=== PATIENT | male | born 1940 | race Caucasian/White ===

== ENCOUNTER → 2017-01-20 | Outpatient (CLI) | payer OTHER ==
[2014-08-30 13:58] VITALS: BP 139/66
--- NOTE | 2017-01-20 16:07 | MRI ---
HISTORY: Ataxic gait Study: MRI Brain without contrast Comparison: 01/03/2012 Technique: Multiplanar multi-sequence MRI of the brain was obtained utilizing standard departmental protocol. Sagittal and axial T1 weighted images were obtained. Axial T2 and flair weighted images were performed as well. Axial diffusion weighted and ADC trace mapping was performed. Findings: There is chronic generalized cerebral volume loss and mild patchy periventricular white matter T2 an d FLAIR hyperintense foci that are nonspecific in nature but may reflect sequela of microvascular is chemic changes. There is a small focus of increased signal on diffusion-weighted images in the right parietal lobe (image 29) corresponding to T2 and FLAIR weighted hyperintense signal and no definite dropout on the ADC map. Findings are favored to represent a subacute to chronic ischemic changes. N o extra-axial fluid collections are observed. The ventricular system appears symmetric and nondilat ed. The cerebellopontine angles are normal in appearance without brainstem mass or evidence for acou stic neuroma. The flow voids on T2 weighted imaging appear unremarkable. The midline structures appear unremarkab le. The soft tissues are unremarkable. The visualized paranasal sinuses and mastoid air cells are c lear. IMPRESSION: 1. Chronic cerebral atrophy and nonspecific mild white matter disease as discussed above likely rep resenting small vessel ischemic changes. Reported By:
== END ==
LOC: RAD 14:16
PROVIDERS: ATTEND Internal Medicine
DX: R26.0 Ataxic gait (principal); G50.1 Atypical facial pain; R42 Dizziness and giddiness
CPT/HCPCS: 70551

== ENCOUNTER 2022-05-25 08:50 | Observation (INO) ==
[2022-05-25 14:55] LABS: HEMOGLOBIN 16.9 g/dL (13.5-18.0); LYMPHOCYTES # (AUTO) 1.5 X10^3/uL (1.3-2.9); MONOCYTES # (AUTO) 1.2 x10^3/uL (0.3-0.8); RED CELL DISTRIBUTION WIDTH 13.2 % (11.6-16.5)
[2022-05-25 15:00] LABS: BASOPHILS % (AUTO) 0.6 % (0.2-1.0); EOSINOPHILS # (AUTO) 0.1 x10^3/uL (0.0-0.2); EOSINOPHILS % (AUTO) 1.7 % (0.9-2.9); HEMATOCRIT 46.3 % (42.0-54.0); LYMPHOCYTES % (AUTO) 17.3 % (21.0-51.0); MEAN CORPUSCULAR HEMOGLOBIN 30.2 pg (27.0-34.0); MEAN CORPUSCULAR HGB CONC 36.5 g/dL (33.0-35.0); MEAN CORPUSCULAR VOLUME 82.7 fL (80.0-100.0); MONOCYTES % (AUTO) 13.9 % (0.0-13.0); NEUTROPHILS # (AUTO) 5.6 x10^3/uL (2.2-4.8); NEUTROPHILS % (AUTO) 66.5 % (42.0-75.0); WHITE BLOOD COUNT 8.4 X10^3/uL (3.6-10.0)
[2022-05-25 15:02] LABS: ALANINE AMINOTRANSFERASE 26 Units/L (12-78); ALBUMIN 4.1 g/dL (3.4-5.0); ALKALINE PHOSPHATASE 100 Units/L (46-116); ASPARTATE AMINO TRANSFERASE 19 Units/L (15-37); BLOOD UREA NITROGEN 18 mg/dL (7-18); CALCIUM 8.8 mg/dL (8.5-10.1); CARBON DIOXIDE 31.3 mmol/L (21-32); CHLORIDE 81 mmol/L (98-107); COR NA(FOR HYPERGLY) 122 mmol/L (136-145); CREATINE KINASE 70 Units/L (39-308); CREATININE 1.63 mg/dL (0.70-1.30); MAGNESIUM 2.1 mg/dL (1.7-2.9); TOTAL PROTEIN 7.1 g/dL (6.4-8.2); eGFR NON BLACK RACES 43 (>60)
[2022-05-25 15:04] LABS: SODIUM 119 mmol/L (136-145)
[2022-05-25] MEDS ORDERED: KLOR-CON PO PRN (15:14)
[2022-05-25] MEDS ORDERED: POTASSIUM CHL 60 MEQ/NS 0.45% 500 ML IV PRN (15:14)
[2022-05-25] MEDS ORDERED: POTASSIUM CHL 40 MEQ/NS 0.45% 500 ML IV PRN (15:14)
[2022-05-25] MEDS ORDERED: MICRO K EXTEN CAP 10 MEQ PO PRN (15:14)
[2022-05-25] MEDS ORDERED: POTASSIUM CHLORIDE LIQ 20 MEQ UDC PO PRN (15:14)
[2022-05-25] MEDS ORDERED: K-RIDER 10 MEQ/NS 100 ML 10 MEQ/100 ML BAG IV PRN (15:14)
[2022-05-25] MEDS ORDERED: K-DUR TAB 20 MEQ PO PRN (15:14)
--- NOTE | 2022-05-25 15:37 | RAD ---
HISTORYHYPONATREMIA, N/VSTUDYCHEST, 1 VIEWCOMPARISONNoneFINDINGSThe lungs are clear. No pneumothorax or significant effusion.Heart size is normal.Degenerative changes are present in the spine. []IMPRESSION1. No significant abnormalityElectronically signed by: Rey Dominguez (May 25, 2022 15:36:39)
[2022-05-25] MEDS: NS 1,000 ML IV 1,000 ML IV SCH (15:52)
[2022-05-26 00:24] LABS: APPEARANCE,URINE CLEAR (CLEAR); BILIRUBIN,URINE NEGATIVE (NEGATIVE); BLOOD/HEMOGLOBIN,URINE NEGATIVE (NEGATIVE); COLOR,URINE STRAW (YELLOW); GLUCOSE, URINE NEGATIVE (NEGATIVE); KETONES,URINE NEGATIVE (NEGATIVE); LEUKOCYTE ESTERASE ,URINE NEGATIVE (NEGATIVE); NITRITES,URINE NEGATIVE (NEGATIVE); PROTEIN,URINE NEGATIVE (NEGATIVE); UROBILINOGEN,URINE NORMAL (NORMAL)
[2022-05-26 06:07] LABS: BLOOD UREA NITROGEN 17 mg/dL (7-18); CALCIUM 9.1 mg/dL (8.5-10.1); CARBON DIOXIDE 29.3 mmol/L (21-32); CHLORIDE 90 mmol/L (98-107); COR NA(FOR HYPERGLY) 128 mmol/L (136-145); CREATININE 1.41 mg/dL (0.70-1.30); MAGNESIUM 2.2 mg/dL (1.7-2.9); SODIUM 127 mmol/L (136-145); eGFR NON BLACK RACES 51 (>60)
[2022-05-26] MEDS: NS 1,000 ML IV 1,000 ML IV SCH ×2 (06:15→21:26)
--- NOTE | 2022-05-26 07:36 | DR.H&P ---
H&P History & Physical for Day of: H&P Date: 05/25/22 Chief Complaint Chief Complaint: Weakness Allergies Allergies Allergy/AdvReac Type Severity Reaction Status Date / Time No Known Drug Allergies Allergy Verified 10/21/19 17:30 History of Present Illness History of Present Illness: This is a 81-year-old white male who is a patient of mine. He presented to the office on the day before complaining of weakness. I did a CBC and CMP and when the results came back it showed that his sodium was 114. Because of this I elected to go ahead and direct admitting and start him on normal saline at 75 cc an hour. I will also repeat his labs check set of cardiac enzymes and EKG and chest x-ray as well. He also is having some nausea and vomiting since last week. The regional symptoms began then after he started taking Lasix he reports. Suspect the daily Lasix he has been taking his causes hyponatremia. Past Medical History Past Medical History: Diabetes and Hypertension Past Surgical History Surgical History: No History Family History Family Medical History: Diabetes Mellitus and Hypertension Social History Does patient currently use any type of tobacco product: No Have you used tobacco products in the last 12 months: No Type of Tobacco Use: None Does any household member use tobacco: No Alcohol Use: None Drug Use: None Medications Home Medications: No Known Drug Allergies Allergy (Verified 10/21/19 17:30) CONTINUE taking the following medications amlodipine 10 mg tablet 10 mg PO QDAY 05/25/22 [History] atorvastatin 40 mg tablet 40 mg PO QHS 05/25/22 [History] carbamazepine 200 mg tablet 200 mg PO BID 05/25/22 [History] glyburide 5 mg tablet 5 mg PO BID 05/25/22 [History] hydrocodone 5 mg-acetaminophen 325 mg tablet 1 tab PO Q6H PRN 05/25/22 [History] lisinopril 30 mg tablet 30 mg PO QDAY 05/25/22 [History] montelukast 10 mg tablet 10 mg PO QDAY 05/25/22 [History] ondansetron 8 mg disintegrating tablet 8 mg PO Q8H 05/25/22 [History] potassium chloride 10 mEq capsule,extended release 10 meq PO QDAY PRN 05/25/22 [History] Labs Result Diagrams: 05/25/22 13:55 05/26/22 05:14 Labs: Laboratory WBC 8.4 X10^3/uL (3.6-10.0) 05/25/22 13:55 RBC 5.60 X10^6/uL (4.7-6.0) 05/25/22 13:55 Hgb 16.9 g/dL (13.5-18.0) 05/25/22 13:55 Hct 46.3 % (42.0-54.0) 05/25/22 13:55 MCV 82.7 fL (80.0-100.0) 05/25/22 13:55 MCH 30.2 pg (27.0-34.0) 05/25/22 13:55 MCHC 36.5 g/dL (33.0-35.0) H 05/25/22 13:55 RDW 13.2 % (11.6-16.5) 05/25/22 13:55 Plt Count 207 X10^3/uL (150.0-450.0) 05/25/22 13:55 MPV 7.0 fL (7.4-11.0) L 05/25/22 13:55 Neut % (Auto) 66.5 % (42.0-75.0) 05/25/22 13:55 Lymph % (Auto) 17.3 % (21.0-51.0) L 05/25/22 13:55 [place] % (Auto) 13.9 % (0.0-13.0) H 05/25/22 13:55 Eos % (Auto) 1.7 % (0.9-2.9) 05/25/22 13:55 Baso % (Auto) 0.6 % (0.2-1.0) 05/25/22 13:55 Neut # (Auto) 5.6 x10^3/uL (2.2-4.8) H 05/25/22 13:55 Lymph # (Auto) 1.5 X10^3/uL (1.3-2.9) 05/25/22 13:55 [place] # (Auto) 1.2 x10^3/uL (0.3-0.8) H 05/25/22 13:55 Eos # (Auto) 0.1 x10^3/uL (0.0-0.2) 05/25/22 13:55 Baso # (Auto) 0.0 X10^3/uL (0.0-0.1) 05/25/22 13:55 Absolute Nucleated RBC 0.0 /100WBC 05/25/22 13:55 Sodium 127 mmol/L (136-145) L 05/26/22 05:14 Corrected Sodium 128 mmol/L (136-145) L 05/26/22 05:14 Potassium 4.3 mmol/L (3.5-5.1) 05/26/22 05:14 Chloride 90 mmol/L (98-107) L 05/26/22 05:14 Carbon Dioxide 29.3 mmol/L (21-32) 05/26/22 05:14 BUN 17 mg/dL (7-18) 05/26/22 05:14 Creatinine 1.41 mg/dL (0.70-1.30) H 05/26/22 05:14 Est GFR (MDRD) Af Amer > 60 (>60) 05/26/22 05:14 Est GFR (MDRD) Non-Af 51 (>60) L 05/26/22 05:14 Glucose 134 mg/dL (65-99) H 05/26/22 05:14 Calcium 9.1 mg/dL (8.5-10.1) 05/26/22 05:14 Corrected Calcium TNP 05/25/22 13:55 Magnesium 2.2 mg/dL (1.7-2.9) 05/26/22 05:14 Total Bilirubin 0.40 mg/dL (0.2-1.0) 05/25/22 13:55 AST 19 Units/L (15-37) 05/25/22 13:55 ALT 26 Units/L (12-78) 05/25/22 13:55 Alkaline Phosphatase 100 Units/L (46-116) 05/25/22 13:55 Creatine Kinase 70 Units/L (39-308) 05/25/22 13:55 Troponin I High Sens 5.3 ng/L (4.0-60.0) 05/25/22 13:55 B-Natriuretic Peptide 6.9 pg/mL (0-79) 05/25/22 13:55 Total Protein 7.1 g/dL (6.4-8.2) 05/25/22 13:55 Albumin 4.1 g/dL (3.4-5.0) 05/25/22 13:55 Globulin 3.0 g/dL (2.5-4.5) 05/25/22 13:55 Albumin/Globulin Ratio 1.4 Ratio (1.1-2.1) 05/25/22 13:55 Specimen Type Clean catch urine 05/25/22 11:55 Urine Color Straw (YELLOW) 05/25/22 11:55 Urine Appearance Clear (CLEAR) 05/25/22 11:55 Urine pH 7.0 (5.0 - 8.0) 05/25/22 11:55 Ur Specific [place] 1.010 (1.000-1.030) 05/25/22 11:55 Urine Protein Negative (NEGATIVE) 05/25/22 11:55 Urine Glucose (UA) Negative (NEGATIVE) 05/25/22 11:55 Urine Ketones Negative (NEGATIVE) 05/25/22 11:55 Urine Blood Negative (NEGATIVE) 05/25/22 11:55 Urine Nitrite Negative (NEGATIVE) 05/25/22 11:55 Urine Bilirubin Negative (NEGATIVE) 05/25/22 11:55 Urine Urobilinogen Normal (NORMAL) 05/25/22 11:55 Ur Leukocyte Esterase Negative (NEGATIVE) 05/25/22 11:55 SARS-CoV-2 (PCR) Negative (NEGATIVE) 05/25/22 13:09 Review of Systems Constitutional: Weakness Eyes: No Symptoms Reported ENT: No Symptoms Reported Respiratory: No Symptoms Reported Cardiovascular: No Symptoms Reported Gastrointestinal: Nausea and Vomiting; denies No Symptoms Reported, See HPI, Abdominal Pain, Constipation, Melena, Hematochezia or Other Genitourinary: No Symptoms Reported Musculoskeletal: Back Pain Skin: Bruising and Ecchymosis Neurological: No Symptoms Reported Physical Exam Vital Signs: Temperature 98.1 F Pulse Rate [Left Radial] 80 Respiratory Rate 20 Blood Pressure [Left Arm] 144/67 Blood Pressure [Right Arm] 183/74 O2 Sat by Pulse Oximetry 92 Oriented: Normal, Time, Person and Place Eyes: Normal Ear: Normal Nose: Normal Throat: Normal Respiratory: Clear Throughout Cardiovascular: Normal : Normal Auscultation: Bowel Sounds: Normal Palpation: Normal Tenderness: Normal Skin: Decreased Turgur and Bruising Psychiatric: Normal Mood Description: Calm Affect: Normal Speech Pattern: Clear and Appropriate Assessment/Plan (1) Hyponatremia: Status: Acute Plan: I will start the patient normal saline at 75 cc an hour. I will recheck a CBC and BMP in the morning. (2) Diabetes mellitus type 2 in nonobese: Status: Acute Plan: Resume his regular home diabetes meds. (3) Hypertension: Status: Acute Plan: Resume patient's regular hypertension tensive meds. (4) Chronic low back pain: Status: Acute Plan: Continue patient's hydrocodone for his chronic back pain. Review H&P Reviewed: Yes Patient was examined?: Yes
[2022-05-26] MEDS: LOVENOX INJ 40 MG SYR SC SCH (10:41)
[2022-05-26] MEDS ORDERED: NORCO 5/325 MG TAB PO PRN (11:05)
[2022-05-26] MEDS: NORVASC TAB 10 MG PO SCH (11:31)
[2022-05-26] MEDS: SINGULAIR TAB 10 MG PO SCH (11:32)
[2022-05-26] MEDS: NovoLIN R (or HumuLIN R) SUBCUT PRN ×3 (11:38→21:32)
[2022-05-26] MEDS ORDERED: ZESTRIL TAB 10 MG PO SCH (12:00)
--- NOTE | 2022-05-26 16:10 | PCM.PROG ---
Progress Note Progress Note for Day of Date of Exam: 05/26/22 Subjective Subjective: The patient is sitting up in bed this morning eating breakfast. He reports he is feeling much better and somewhat stronger than yesterday. His sodium was 19 yesterday coming to the hospital and this morning he has come up to 128. We will continue him on the normal saline at 75 mL an hour and plan on discharging home tomorrow as long as his sodium has continued to improve. I will restart his blood pressure medicines today for his hypertension no other changes. We will recheck another BMP in the morning. Past Medical Family Social History Allergies: Allergies No Known Drug Allergies Allergy (Verified 10/21/19 17:30) Review of Systems ROS: No change since H&P Vital Signs and I&O's Vital Signs: Temperature 98.0 F Pulse Rate [Left Radial] 70 Respiratory Rate 20 Blood Pressure [Left Arm] 171/72 Blood Pressure [Right Arm] 183/74 O2 Sat by Pulse Oximetry 94 Intake and Output: Intake & Output 05/24/22 05/25/22 05/26/22 05/27/22 11:59 11:59 11:59 11:59 Intake Total 1587 / 1587 1250 / 1250 Balance 1587 / 1587 1250 / 1250 Physical Exam Oriented: Normal, Time, Person and Place Eyes: Normal Ear: Normal Nose: Normal Throat: Normal Respiratory: Normal Cardiovascular: Normal : Normal Auscultation: Bowel Sounds: Normal Tenderness: Normal Skin: Decreased Turgur and Bruising Psychiatric: Normal Mood Description: Calm Affect: Normal Speech Pattern: Clear and Appropriate Laboratory and Diagnostics Result Diagrams: 05/25/22 13:55 05/26/22 05:14 Labs: Laboratory WBC 8.4 X10^3/uL (3.6-10.0) 05/25/22 13:55 RBC 5.60 X10^6/uL (4.7-6.0) 05/25/22 13:55 Hgb 16.9 g/dL (13.5-18.0) 05/25/22 13:55 Hct 46.3 % (42.0-54.0) 05/25/22 13:55 MCV 82.7 fL (80.0-100.0) 05/25/22 13:55 MCH 30.2 pg (27.0-34.0) 05/25/22 13:55 MCHC 36.5 g/dL (33.0-35.0) H 05/25/22 13:55 RDW 13.2 % (11.6-16.5) 05/25/22 13:55 Plt Count 207 X10^3/uL (150.0-450.0) 05/25/22 13:55 MPV 7.0 fL (7.4-11.0) L 05/25/22 13:55 Neut % (Auto) 66.5 % (42.0-75.0) 05/25/22 13:55 Lymph % (Auto) 17.3 % (21.0-51.0) L 05/25/22 13:55 [place] % (Auto) 13.9 % (0.0-13.0) H 05/25/22 13:55 Eos % (Auto) 1.7 % (0.9-2.9) 05/25/22 13:55 Baso % (Auto) 0.6 % (0.2-1.0) 05/25/22 13:55 Neut # (Auto) 5.6 x10^3/uL (2.2-4.8) H 05/25/22 13:55 Lymph # (Auto) 1.5 X10^3/uL (1.3-2.9) 05/25/22 13:55 [place] # (Auto) 1.2 x10^3/uL (0.3-0.8) H 05/25/22 13:55 Eos # (Auto) 0.1 x10^3/uL (0.0-0.2) 05/25/22 13:55 Baso # (Auto) 0.0 X10^3/uL (0.0-0.1) 05/25/22 13:55 Absolute Nucleated RBC 0.0 /100WBC 05/25/22 13:55 Sodium 127 mmol/L (136-145) L 05/26/22 05:14 Corrected Sodium 128 mmol/L (136-145) L 05/26/22 05:14 Potassium 4.3 mmol/L (3.5-5.1) 05/26/22 05:14 Chloride 90 mmol/L (98-107) L 05/26/22 05:14 Carbon Dioxide 29.3 mmol/L (21-32) 05/26/22 05:14 BUN 17 mg/dL (7-18) 05/26/22 05:14 Creatinine 1.41 mg/dL (0.70-1.30) H 05/26/22 05:14 Est GFR (MDRD) Af Amer > 60 (>60) 05/26/22 05:14 Est GFR (MDRD) Non-Af 51 (>60) L 05/26/22 05:14 Glucose 134 mg/dL (65-99) H 05/26/22 05:14 POC Glucose (mg/dL) 177 mg/dL (65-99) H 05/26/22 11:15 Calcium 9.1 mg/dL (8.5-10.1) 05/26/22 05:14 Corrected Calcium TNP 05/25/22 13:55 Magnesium 2.2 mg/dL (1.7-2.9) 05/26/22 05:14 Total Bilirubin 0.40 mg/dL (0.2-1.0) 05/25/22 13:55 AST 19 Units/L (15-37) 05/25/22 13:55 ALT 26 Units/L (12-78) 05/25/22 13:55 Alkaline Phosphatase 100 Units/L (46-116) 05/25/22 13:55 Creatine Kinase 80 Units/L (39-308) 05/26/22 14:50 Troponin I High Sens 5.3 ng/L (4.0-60.0) 05/26/22 14:50 B-Natriuretic Peptide 6.9 pg/mL (0-79) 05/25/22 13:55 Total Protein 7.1 g/dL (6.4-8.2) 05/25/22 13:55 Albumin 4.1 g/dL (3.4-5.0) 05/25/22 13:55 Globulin 3.0 g/dL (2.5-4.5) 05/25/22 13:55 Albumin/Globulin Ratio 1.4 Ratio (1.1-2.1) 05/25/22 13:55 Specimen Type Clean catch urine 05/25/22 11:55 Urine Color Straw (YELLOW) 05/25/22 11:55 Urine Appearance Clear (CLEAR) 05/25/22 11:55 Urine pH 7.0 (5.0 - 8.0) 05/25/22 11:55 Ur Specific [place] 1.010 (1.000-1.030) 05/25/22 11:55 Urine Protein Negative (NEGATIVE) 05/25/22 11:55 Urine Glucose (UA) Negative (NEGATIVE) 05/25/22 11:55 Urine Ketones Negative (NEGATIVE) 05/25/22 11:55 Urine Blood Negative (NEGATIVE) 05/25/22 11:55 Urine Nitrite Negative (NEGATIVE) 05/25/22 11:55 Urine Bilirubin Negative (NEGATIVE) 05/25/22 11:55 Urine Urobilinogen Normal (NORMAL) 05/25/22 11:55 Ur Leukocyte Esterase Negative (NEGATIVE) 05/25/22 11:55 SARS-CoV-2 (PCR) Negative (NEGATIVE) 05/25/22 13:09 Radiology Reviewed: Yes EKG Reviewed: Yes Plan (1) Hyponatremia: Status: Acute Narrative Support Text: Improving since admission Plan: I will start the patient normal saline at 75 cc an hour. I will recheck BMP in the morning. (2) Diabetes mellitus type 2 in nonobese: Status: Acute Plan: Resume his regular home diabetes meds. (3) Hypertension: Status: Acute Plan: Resume patient's regular hypertension tensive meds. (4) Chronic low back pain: Status: Acute Plan: Continue patient's hydrocodone for his chronic back pain.
[2022-05-26] MEDS: DIABETA PO SCH (17:23)
[2022-05-26] MEDS: TOPROL XL PO SCH (18:10)
[2022-05-26] MEDS ORDERED: SNACK - Diabetic Appropriate PO SCH ×2 (20:00)
[2022-05-26] MEDS ORDERED: LIPITOR TAB 40 MG PO SCH (21:00)
[2022-05-27 05:52] LABS: BASOPHILS # (AUTO) 0.1 X10^3/uL (0.0-0.1); EOSINOPHILS # (AUTO) 0.4 x10^3/uL (0.0-0.2); EOSINOPHILS % (AUTO) 3.6 % (0.9-2.9); HEMOGLOBIN 16.8 g/dL (13.5-18.0); LYMPHOCYTES # (AUTO) 2.2 X10^3/uL (1.3-2.9); LYMPHOCYTES % (AUTO) 20.6 % (21.0-51.0); MEAN CORPUSCULAR HEMOGLOBIN 30.2 pg (27.0-34.0); MEAN CORPUSCULAR HGB CONC 35.6 g/dL (33.0-35.0); MEAN CORPUSCULAR VOLUME 84.8 fL (80.0-100.0); MEAN PLATELET VOLUME 6.6 fL (7.4-11.0); MONOCYTES # (AUTO) 1.5 x10^3/uL (0.3-0.8); MONOCYTES % (AUTO) 13.4 % (0.0-13.0); NEUTROPHILS # (AUTO) 6.7 x10^3/uL (2.2-4.8); NEUTROPHILS % (AUTO) 61.4 % (42.0-75.0); RED BLOOD COUNT 5.55 X10^6/uL (4.7-6.0); RED CELL DISTRIBUTION WIDTH 13.4 % (11.6-16.5); WHITE BLOOD COUNT 10.8 X10^3/uL (3.6-10.0)
[2022-05-27 06:11] LABS: ALANINE AMINOTRANSFERASE 46 Units/L (12-78); ALBUMIN 3.7 g/dL (3.4-5.0); ALKALINE PHOSPHATASE 95 Units/L (46-116); ASPARTATE AMINO TRANSFERASE 29 Units/L (15-37); BLOOD UREA NITROGEN 17 mg/dL (7-18); CALCIUM 8.5 mg/dL (8.5-10.1); CARBON DIOXIDE 26.8 mmol/L (21-32); CHLORIDE 95 mmol/L (98-107); CREATININE 1.33 mg/dL (0.70-1.30); SODIUM 130 mmol/L (136-145); TOTAL PROTEIN 6.7 g/dL (6.4-8.2); eGFR NON BLACK RACES 55 (>60)
[2022-05-27] MEDS: NS 1,000 ML IV 1,000 ML IV SCH (06:12)
[2022-05-27] MEDS: DIABETA PO SCH (08:03)
[2022-05-27] MEDS: SINGULAIR TAB 10 MG PO SCH (08:40)
[2022-05-27] MEDS: TOPROL XL PO SCH (08:40)
[2022-05-27] MEDS: NORVASC TAB 10 MG PO SCH (08:40)
[2022-05-27] MEDS: LOVENOX INJ 40 MG SYR SC SCH (08:40)
[2022-05-27] MEDS ORDERED: ZESTRIL TAB 40 MG PO SCH (09:00)
--- NOTE | 2022-05-27 09:14 | PCM.DCPLAN ---
DISCHARGE SUMMARY Admission Date Date of Admission: 05/25/22 Discharge Date Discharge Date: 05/27/22 Admission Diagnoses (1) Hyponatremia: Status: Acute (2) Diabetes mellitus type 2 in nonobese: Status: Acute (3) Hypertension: Status: Acute (4) Chronic low back pain: Status: Acute Discharge Diagnoses Discharge Diagnosis: 1. Hyponatremia resolved 2. Diabetes mellitus type 2 stable 3. Hypertension stable 4. Chronic low back pain stable 5. Mild dehydration now resolved Discharge Medications Discharge Medications: Home Medication List amlodipine 10 mg tablet 10 mg PO QDAY 05/25/22 [History] atorvastatin 40 mg tablet 40 mg PO QHS 05/25/22 [History] carbamazepine 200 mg tablet 200 mg PO BID 05/25/22 [History] glyburide 5 mg tablet 5 mg PO BID 05/25/22 [History] hydrocodone 5 mg-acetaminophen 325 mg tablet 1 tab PO Q6H PRN 05/25/22 [History] lisinopril 30 mg tablet 30 mg PO QDAY 05/25/22 [History] montelukast 10 mg tablet 10 mg PO QDAY 05/25/22 [History] ondansetron 8 mg disintegrating tablet 8 mg PO Q8H 05/25/22 [History] potassium chloride 10 mEq capsule,extended release 10 meq PO QDAY PRN 05/25/22 [History] Prescriptions: Hospital Course Vital Signs: Temperature 98.1 F Pulse Rate [Left Radial] 56 Respiratory Rate 18 Blood Pressure [Left Arm] 142/66 Blood Pressure [Right Arm] 183/74 O2 Sat by Pulse Oximetry 94 Latest Lab Results: Laboratory Last Values WBC 10.8 X10^3/uL (3.6-10.0) H 05/27/22 05:37 RBC 5.55 X10^6/uL (4.7-6.0) 05/27/22 05:37 Hgb 16.8 g/dL (13.5-18.0) 05/27/22 05:37 Hct 47.0 % (42.0-54.0) 05/27/22 05:37 MCV 84.8 fL (80.0-100.0) 05/27/22 05:37 MCH 30.2 pg (27.0-34.0) 05/27/22 05:37 MCHC 35.6 g/dL (33.0-35.0) H 05/27/22 05:37 RDW 13.4 % (11.6-16.5) 05/27/22 05:37 Plt Count 210 X10^3/uL (150.0-450.0) 05/27/22 05:37 MPV 6.6 fL (7.4-11.0) L 05/27/22 05:37 Neut % (Auto) 61.4 % (42.0-75.0) 05/27/22 05:37 Lymph % (Auto) 20.6 % (21.0-51.0) L 05/27/22 05:37 [place] % (Auto) 13.4 % (0.0-13.0) H 05/27/22 05:37 Eos % (Auto) 3.6 % (0.9-2.9) H 05/27/22 05:37 Baso % (Auto) 1.0 % (0.2-1.0) 05/27/22 05:37 Neut # (Auto) 6.7 x10^3/uL (2.2-4.8) H 05/27/22 05:37 Lymph # (Auto) 2.2 X10^3/uL (1.3-2.9) 05/27/22 05:37 [place] # (Auto) 1.5 x10^3/uL (0.3-0.8) H 05/27/22 05:37 Eos # (Auto) 0.4 x10^3/uL (0.0-0.2) H 05/27/22 05:37 Baso # (Auto) 0.1 X10^3/uL (0.0-0.1) 05/27/22 05:37 Absolute Nucleated RBC 0.0 /100WBC 05/27/22 05:37 Sodium 130 mmol/L (136-145) L 05/27/22 05:37 Corrected Sodium TNP 05/27/22 05:37 Potassium 4.2 mmol/L (3.5-5.1) 05/27/22 05:37 Chloride 95 mmol/L (98-107) L 05/27/22 05:37 Carbon Dioxide 26.8 mmol/L (21-32) 05/27/22 05:37 BUN 17 mg/dL (7-18) 05/27/22 05:37 Creatinine 1.33 mg/dL (0.70-1.30) H 05/27/22 05:37 Est GFR (MDRD) Af Amer > 60 (>60) 05/27/22 05:37 Est GFR (MDRD) Non-Af 55 (>60) L 05/27/22 05:37 Glucose 73 mg/dL (65-99) 05/27/22 05:37 POC Glucose (mg/dL) 83 mg/dL (65-99) 05/27/22 05:50 Calcium 8.5 mg/dL (8.5-10.1) 05/27/22 05:37 Corrected Calcium TNP 05/27/22 05:37 Magnesium 2.2 mg/dL (1.7-2.9) 05/26/22 05:14 Total Bilirubin 0.40 mg/dL (0.2-1.0) 05/27/22 05:37 AST 29 Units/L (15-37) 05/27/22 05:37 ALT 46 Units/L (12-78) 05/27/22 05:37 Alkaline Phosphatase 95 Units/L (46-116) 05/27/22 05:37 Creatine Kinase 53 Units/L (39-308) 05/27/22 05:37 Troponin I High Sens 7.3 ng/L (4.0-60.0) 05/27/22 05:37 B-Natriuretic Peptide 6.9 pg/mL (0-79) 05/25/22 13:55 Total Protein 6.7 g/dL (6.4-8.2) 05/27/22 05:37 Albumin 3.7 g/dL (3.4-5.0) 05/27/22 05:37 Globulin 3.0 g/dL (2.5-4.5) 05/27/22 05:37 Albumin/Globulin Ratio 1.2 Ratio (1.1-2.1) 05/27/22 05:37 Specimen Type Clean catch urine 05/25/22 11:55 Urine Color Straw (YELLOW) 05/25/22 11:55 Urine Appearance Clear (CLEAR) 05/25/22 11:55 Urine pH 7.0 (5.0 - 8.0) 05/25/22 11:55 Ur Specific [place] 1.010 (1.000-1.030) 05/25/22 11:55 Urine Protein Negative (NEGATIVE) 05/25/22 11:55 Urine Glucose (UA) Negative (NEGATIVE) 05/25/22 11:55 Urine Ketones Negative (NEGATIVE) 05/25/22 11:55 Urine Blood Negative (NEGATIVE) 05/25/22 11:55 Urine Nitrite Negative (NEGATIVE) 05/25/22 11:55 Urine Bilirubin Negative (NEGATIVE) 05/25/22 11:55 Urine Urobilinogen Normal (NORMAL) 05/25/22 11:55 Ur Leukocyte Esterase Negative (NEGATIVE) 05/25/22 11:55 SARS-CoV-2 (PCR) Negative (NEGATIVE) 05/25/22 13:09 Hospital Course: The patient was admitted for hyponatremia 2 days ago. His sodium level was 114 from the last we checked in my office 3 days ago. Since then he has been increasing and is 130 today. He feels back to normal he is able to walk to the bathroom and back without feeling weak and having a feeling that he is going to fall down. He is taking p.o. food and nutrition well without any problems and is ready to go home this morning. I think the Lasix the patient was taking every day is what got his sodium level down so we will hold that for now to see how he does without it. I also think the patient was mildly dehydrated but his BUN and creatinine levels communion and he has been taking normal saline 75 cc an hour since admission and this seems to have him rehydrated well and feeling much better. Patient will be discharged home today in stable condition he can resume his regular home medications but we will be stopping the Lasix.
[2022-05-27 09:40] VITALS: BP 178/76
== END 2022-05-27 08:45 | disposition home or self-care (01) ==
LOC: MED/SURG 12:40 → INTOOBSV 12:40
PROVIDERS: ADMIT Family Medicine; ATTEND Family Medicine
DX: E86.0 Dehydration; Z20.822 Contact with and (suspected) exposure to COVID-19; E87.1 Hypo-osmolality and hyponatremia; E87.6 Hypokalemia; M54.50 Low back pain, unspecified; R26.89 Other abnormalities of gait and mobility; E11.65 Type 2 diabetes mellitus with hyperglycemia; I10 Essential (primary) hypertension; R11.2 Nausea with vomiting, unspecified